=== PATIENT | female | born 1970 | race Caucasian/White ===

== ENCOUNTER 2021-12-28 03:59 | Emergency (ER) | payer OTHER, SELFPAY ==
[2021-12-28 04:01] VITALS: BP 137/61; PULSE 93; RESP 16; TEMP 36.4; O2SAT 99; BMI 44.7
--- NOTE | 2021-12-28 04:17 | EKG12_ITS ---
Test Reason : ABD Blood Pressure : / mmHG Vent. Rate : 092 BPM Atrial Rate : 092 BPM P-R Int : 142 ms QRS Dur : 096 ms QT Int : 370 ms P-R-T Axes : 068 064 071 degrees QTc Int : 457 ms Normal sinus rhythm Normal ECG Confirmed by CAT SKELTON, ILDA ([id number]), television news video editor KATY ZAPATA ([id number]) on 12/30/2021 11:41:30 AM Referred By: SAVANAH Confirmed By:ILDA SHELTON MD
--- NOTE | 2021-12-28 04:19 | EX.ED.DYSGE1 ---
HPI History of Present Illness Chief Complaint: Abd Pain Informant: patient Narrative Narrative: Patient presents with abdominal pain. This started sometime after she woke up. It was about 9 hours ago at about 7 PM when it started. But then patient states that she has been having episodes of nausea off and on for about 3 weeks. She has some soft bowel movements but that is common because she has irritable bowel syndrome. All of her pain is in the upper abdomen and epigastric area. It does not seem to radiate to the back. She has had pancreatitis before but that was due to gallstones and she had her gallbladder out 5 or 6 years ago. She has no fevers or chills. She has not had vomiting. She has not had blood in the stool. No trauma. No chest pain or trouble breathing. No urinary symptoms. Nothing specifically makes this better or worse. PFSH PFSH Medical History Anxiety Depression GERD (gastroesophageal reflux disease) Hypertension IBS (irritable bowel syndrome) Migraines Pancreatitis Psoriatic arthritis Home Medications aripiprazole 5 mg PO DAILY 12/28/21 [History Last Taken Unknown] bupropion HCl mg PO DAILY 12/28/21 [History Last Taken Unknown] dicyclomine 20 mg PO TID PRN #20 tab 12/28/21 [Rx Last Taken Unknown] ferrous sulfate [iron] 325 mg PO DAILY 12/28/21 [History Last Taken Unknown] nortriptyline 100 mg PO DAILY 12/28/21 [History Last Taken Unknown] omeprazole 40 mg PO BID 12/28/21 [History Last Taken Unknown] ondansetron 4 mg PO Q8H PRN #10 tab 12/28/21 [Rx Last Taken Unknown] Allergy/AdvReac Type Severity Reaction Status Date / Time Penicillins Allergy Severe Hives Verified 12/28/21 04:12 erythromycin base Allergy Vomiting Verified 12/28/21 04:12 Sulfa (Sulfonamide Allergy Swelling Verified 12/28/21 04:12 Antibiotics) tylenol cold and flu Allergy Rash Uncoded 12/28/21 04:13 Surgical History History of cholecystectomy Social History Smoking Status: Never smoker ROS ROS ED Constitutional Constitutional ED: Denies chills or fever(s) ENT ENT ED: Denies rhinorrhea or sore throat Cardiovascular Cardiovascular: Denies chest pain or palpitations Respiratory/Chest Respiratory/Chest: Denies cough, dyspnea or sputum Gastrointestinal Gastrointestinal: Reports abdominal pain, diarrhea and nausea; Denies constipation, melena or vomiting Genitourinary Genitourinary ED: Denies dysuria or hematuria Musculoskeletal Musculoskeletal: Denies arthralgias, back pain or myalgias Integumentary Denies rash Neurologic Neurologic: Denies headache(s) Psychiatric Psychiatric: Reports anxiety and depression Endocrine Endocrinology: Denies polydipsia or polyuria Allergic/Immunologic Allergic/Immunologic ED: Denies mouth swelling or urticaria EXAM Physical Exam Const Vital Signs: 12/28/21 04:01 12/28/21 05:26 Temperature 97.5 F L Temperature Source Oral Pulse Rate 93 78 Respiratory Rate 16 16 Blood Pressure 137/61 H 110/47 L Blood Pressure Mean 86 68 Pulse Ox 99 97 Oxygen Delivery Method Room Air Room Air Positive well nourished, well developed and obese General Appearance ED: well developed and NAD; Negative for cyanotic or diaphoretic Nutritional Appearance: obese HEENT Reports moist mucous membranes Eyes General Eye ED: Negative for pale conjunctiva or scleral icterus Neck no JVD Chest Wall inspection of chest normal Resp normal respiratory effort and clear to auscultation bilaterally Effort and Inspection: Negative for pain with movement Auscultation: Negative for rales, rhonchi or wheezes Cardio regular rate and regular rhythm GI normal to inspection, nondistended, normoactive bowel sounds, non-tender and non-distended GI Narrative: Patient points to the epigastric and left upper quadrant where her stomach is sore. But is really not tender to exam. There is no rebound or guarding. No masses. I feel no hernia. No lower or right upper quadrant tenderness either. Auscultation: normoactive bowel sounds Palpation: soft Back/Spine no CVA tenderness Extremity normal to inspection Neuro Sensorium / Orientation: alert; Negative for lethargic or stuporous Psych mental status grossly normal Skin no rashes or lesions noted and no wounds MDM MDM MDM Narrative Medical decision making narrative: Patient had a very slight rise of her white count at 11.3. Electrolytes showed no marked abnormalities. Minimal elevation in creatinine and glucose. Liver function test normal. Lipase normal. Urine showed 5-10 white cells but no nitrites. It was clear. She has no urinary symptoms. Her pain is mostly in the upper abdomen. Because she was having continued pain, we did do a CAT scan. This is not showing any acute issue. There is mild hepatic steatosis. There is some diverticulosis without diverticulitis. I think the patient safe to go home. We discussed reasons to return. I will write her meds for cramping and nausea. Lab Data Attestation: I reviewed the patient's lab results. Labs: Laboratory Results - last 24 hr 12/28/21 12/28/21 12/28/21 04:03 04:03 04:35 WBC 11.3 H RBC 4.83 Hgb 14.1 Hct 42.8 MCV 88.6 MCH 29.2 MCHC 32.9 RDW Std Deviation 43.8 RDW Coeff of Lauren 13.3 Plt Count 341 MPV 9.6 Immature Gran % (Auto) 1.000 H Neut % (Auto) 60.0 Lymph % (Auto) 28.4 [place] % (Auto) 4.9 Eos % (Auto) 5.0 Baso % (Auto) 0.7 Absolute Neuts (auto) 6.8 Absolute Lymphs (auto) 3.21 Nucleated RBC % 0 Sodium 135 L Potassium 3.6 Chloride 98 Carbon Dioxide 26.0 Anion Gap 11 BUN 20 H Creatinine 1.12 H Estim Creat Clear Calc 46.47 Est GFR (MDRD) Af Amer 66 Est GFR (MDRD) Non-Af 54 L BUN/Creatinine Ratio 17.9 Glucose 147 H Calcium 9.5 Total Bilirubin 0.30 AST 19 ALT 39 Alkaline Phosphatase 105 Total Protein 8.0 Albumin 4.1 Globulin 3.9 Albumin/Globulin Ratio 1.1 Lipase 192 Urine Color Yellow Urine Clarity Clear Urine pH 5.0 Ur Specific [place] 1.020 Urine Protein Negative Urine Glucose (UA) Normal Urine Ketones Negative Urine Occult Blood Negative Urine Nitrite Negative Urine Bilirubin Negative Urine Urobilinogen Normal Ur Leukocyte Esterase 100 H Urine RBC 0 SEEN Urine WBC 5-10 SEEN Ur Squamous Epith Cells 0-5 SEEN Ur Transition Epith Cell 0-5 SEEN Urine Bacteria 1+ Urine Mucus 0 SEEN Radiography Diagnostic Testing: Clinical Impression(s) from Imaging Studies Abdomen/Pelvis CT 12/28/21 05:03 IMPRESSION: No acute findings. Sigmoid colon diverticulosis, no diverticulitis. Hepatic steatosis and mild hepatomegaly. 3.3 cm pedunculated uterine fibroid. Electronically Signed: Peter Agudelo MD at 6:24 EST , EKG Initial EKG: Comments: EKG done for epigastric pain and read by me shows normal sinus rhythm with a rate of 92. No ectopy. No acute ST elevation or depression. NH interval, QRS duration and QTc are normal. Discharge Plan Triage Chief Complaint: Abd Pain ED Provider: Seb Castillo Dx/Rx/DC Orders Clinical Impression: Abdominal pain, History of IBS Instructions: ED Abdominal Pain Unkn Cause Fem, ED Irritable Bowel Syndrome Prescriptions: New ondansetron 4 mg tablet,disintegrating 4 mg PO Q8H PRN (Reason: nausea and vomiting) Qty: 10 RF: 0 dicyclomine 20 mg tablet 20 mg PO TID PRN (Reason: cramping) Qty: 20 RF: 0 No Action omeprazole 40 mg Capsule,Delayed Release(Dr/Ec) 40 mg PO BID RF: 0 nortriptyline 25 mg Capsule 100 mg PO DAILY RF: 0 bupropion HCl 100 mg Tablet PO DAILY RF: 0 ferrous sulfate [iron] 325 mg (65 mg iron) Tablet 325 mg PO DAILY RF: 0 aripiprazole 5 mg Tablet 5 mg PO DAILY RF: 0 Referrals: HANS WARE [Other] - 3-5 Days if not improving Disposition Disposition: Home, Self Care
[2021-12-28] MEDS: Ondansetron 4 MG/2 ML Vial IV (04:31)
[2021-12-28] MEDS: 0.9% Normal Saline 1,000 ML 1000 ML IV (04:31)
[2021-12-28] MEDS: Dicyclomine 20 MG/2 ML Vial IM (04:31)
[2021-12-28 04:42] LABS: Absolute Lymphocyte Count 3.21 X10^3/uL (0.83-4.51); Absolute Neutrophil Count 6.8 X10^3/uL (2.0-7.7); Basophil# 0.08 X10^3/uL; Basophil% 0.7 % (0-1); Eosinophil# 0.56 X10^3/uL; Hematocrit 42.8 % (37-47); Hemoglobin 14.1 g/dL (12.0-15.0); Lymphocyte # 3.21 X10^3/ul (0.83-4.51); Lymphocyte % 28.4 % (19-41); Mean Corp Hgb Conc 32.9 g/dL (32-36); Mean Corpuscular Hgb 29.2 pg (27.0-32.0); Mean Corpuscular Volume 88.6 fL (81-99); Mean Platelet Vol. 9.6 fl (6.2-12.0); Monocyte# 0.55 X10^3/uL; Monocyte% 4.9 % (0-10); NRBC Flagged by Analyzer 0 % (0-5); Neutrophil # 6.78 X10^3/uL (2.7-7.7); Platelet Count 341 K/mm3 (150-450); RBC Distribution Width CV 13.3 % (11.6-14.6); RBC Distribution Width SD 43.8 fl (35.1-43.9); Red Blood Count 4.83 M/mm3 (4.2-5.4); White Blood Count 11.3 K/mm3 (4.4-11.0)
[2021-12-28 04:44] LABS: Mucous, Urine 0 SEEN /hpf (<or=2+); Red Blood Cells-Urine 0 SEEN /hpf (0-5)
[2021-12-28 04:45] LABS: Color, Urine Yellow (Yellow); Glucose, Dipstick Normal (Normal); Ketone-Dipstick Negative (Negative); Leukocyte Esterase-Dipstick 100 /ul (Negative); Nitrite-Dipstick Negative (Negative); Occult Blood-Urine Negative /ul (Negative); Protein-Dipstick Negative (Negative); Urine Bilirubin Dipstick Negative (Negative); Urine Clarity Clear (Clear); Urine Urobilinogen Normal (Normal)
[2021-12-28 04:55] LABS: ALB/GLOB Ratio 1.1 RATIO (0.9-2.4); AST(SGOT) 19 U/L (15-37); Alanine Aminotransfer ALT/SGPT 39 U/L (13-56); Albumin, Serum 4.1 g/dL (3.2-5.0); Alkaline Phosphatase 105 U/L (45-117); Anion Gap 11 (5-15); BUN 20 mg/dL (7-18); BUN/Creat Ratio 17.9 RATIO (10-20); Calcium,Total 9.5 mg/dL (8.5-10.1); Chloride 98 mmol/L (98-107); Creatinine, Serum 1.12 mg/dL (0.55-1.02); EST Glomerular Filtration Rate 54 mL/min (>60); Est Glom Filt Rate - Afr Amer 66 mL/min (>60); Estimated Creatinine Clearance 46.47 ml/min; Globulin 3.9 g/dL (2.2-4.2); Glucose 147 mg/dL (74-106); Lipase 192 U/L (73-393); Potassium 3.6 mmol/L (3.5-5.1); Sodium Level 135 mmol/L (136-145)
--- NOTE | 2021-12-28 05:03 | CT_ITS ---
STUDY: CT ABDOMEN AND PELVIS WITH CONTRAST REASON FOR EXAM: Female, 51 years old. Epigastric pain and nausea. Elevated white blood cell count. TECHNIQUE: IV Contrast: IV 100mL Isovue-300 Enteric contrast: None administered. Axial images obtained. Coronal and sagittal reformatted images provided. Individualized dose optimization techniques were used for this CT. COMPARISON: None. FINDINGS: Partially visualized lower chest: Lung bases unremarkable. Liver: Diffuse steatosis and mild hepatomegaly. No focal lesions are evident. Gallbladder and biliary tree: Status post cholecystectomy No biliary ductal dilation. Pancreas: No pancreatic lesions or inflammation. Spleen: Normal size, no splenic lesions. Adrenal glands: No concerning masses. Kidneys and ureters: No hydronephrosis or renal stones. No concerning masses. No ureteral dilation. Bowel: Normal appendix. No obstruction or inflammation of the bowel. Sigmoid colon diverticulosis, no diverticulitis. Urinary bladder: No stones or wall thickening. Reproductive: 3.3 cm fibroid, pedunculated, extending cephalad and posteriorly off the right uterine fundus. Ovaries unremarkable. Vascular: No abdominal aortic aneurysm. Retroperitoneal and peritoneal spaces: No ascites or free air. No retroperitoneal lesions. Osseous: No acute osseous abnormality. Abdominal and pelvic wall: No concerning findings. Any findings described in the findings sections and not included in the impression are incidental and do not require imaging follow-up. CT/Abdomen/Pelvis W IV Cont ONLY IMPRESSION: No acute findings. Sigmoid colon diverticulosis, no diverticulitis. Hepatic steatosis and mild hepatomegaly. 3.3 cm pedunculated uterine fibroid. Electronically Signed: Peter Agudelo MD at 6:24 EST Reading Location ID and State: [facility] [place] Tel , Service support ,
[2021-12-28 05:04] LABS: Bacteria 1+ /hpf (None Seen); Squamous Epithelial Cells - UA 0-5 SEEN /hpf (5-10); Transitional Epithelial - Ur 0-5 SEEN /hpf (0-5); White Blood Cells 5-10 SEEN /hpf (0-5)
[2021-12-28 05:26] VITALS: BP 110/47; PULSE 78; RESP 16; O2SAT 97
[2021-12-28] MEDS: Morphine 4 MG/ML Syringe IV (05:51)
[2021-12-28 06:51] VITALS: BP 120/74; PULSE 87; RESP 16; O2SAT 97
== END 2021-12-28 06:53 | disposition home or self-care (01) ==
PROVIDERS: Emergency Provider Emergency Medicine; Visit Provider Emergency Medicine
DX: R10.9 Unspecified abdominal pain (principal); L40.50 Arthropathic psoriasis, unspecified; K57.90 Diverticulosis of intestine, part unspecified, without perforation or abscess without bleeding; K58.9 Irritable bowel syndrome, unspecified; K76.0 Fatty (change of) liver, not elsewhere classified; I10 Essential (primary) hypertension; K21.9 Gastro-esophageal reflux disease without esophagitis; F32.A Depression, unspecified; F41.9 Anxiety disorder, unspecified; Z79.899 Other long term (current) drug therapy
CPT/HCPCS: 74177; 80053; 81001; 83690; 85025; 93005; 96361; 96372; 96374; 96375; 99283; J7030; Q9967; J2405

== ENCOUNTER 2022-04-09 02:15 | Emergency (ER) | payer OTHER, SELFPAY ==
[2022-04-09 02:16] VITALS: PULSE 88; RESP 18; TEMP 36; O2SAT 99; BMI 43.4
--- NOTE | 2022-04-09 02:21 | CT_ITS ---
STUDY: CT ABDOMEN AND PELVIS WITHOUT CONTRAST REASON FOR EXAM: Female, 51 years old. left flank pain RADIATION DOSAGE (If Supplied By Facility): CTDIvol = ( 20.56 ) mGy, DLP = ( 1037.55 ) mGycm TECHNIQUE: Transaxial images were obtained from the dome of the diaphragm to the symphysis pubis without oral contrast, and without intravenous contrast. Sagittal and coronal images were reconstructed. Individualized dose optimization techniques were used for this CT. COMPARISON: None. FINDINGS: The visualized lung bases are unremarkable. The visualized portions of the heart are within normal limits. Normal liver. There are surgical clips in the gallbladder fossa consistent with a prior cholecystectomy. Normal spleen. Normal pancreas. Normal bilateral adrenal glands. Normal right kidney. Normal left kidney. Normal visualized stomach. Normal small intestine. There are multiple colonic diverticula consistent with diverticulosis. The appendix is visualized and appears normal. Normal abdominal aorta. Normal inferior vena cava. Normal retroperitoneum. Normal urinary bladder. Normal abdominal wall. Normal osseous structures. CT/Abdomen/Pelvis without Cont IMPRESSION: Sigmoid diverticulosis. Electronically Signed: Liv Zamora MD at 3:08 EDT ,
--- NOTE | 2022-04-09 02:22 | EDS_ITS ---
HPI History of Present Illness Chief Complaint: Flank Pain Detail of Chief Complaint: Left flank pain x2 weeks Informant: patient Onset/Context/Timing Current Severity: 06/24 Narrative Narrative: Patient presents to the emergency department complaint left flank pain that started initially about 2 weeks ago and she is had the pain off and on. Over the last 24 hours the pains been continuous. Pain is worse with certain twisting motions. She states the pain does wrap around to the upper abdomen and side. She not had pain like this before. She denies any injury to her back. She denies urinary symptoms. She denies fever. She denies vomiting. Prior similar symptoms: No PFSH PFSH Medical History Anxiety Depression GERD (gastroesophageal reflux disease) Hypertension IBS (irritable bowel syndrome) Migraines Pancreatitis Psoriatic arthritis Home Medications aripiprazole 5 mg PO DAILY 12/28/21 [History Last Taken Unknown] bupropion HCl 100 mg PO DAILY 12/28/21 [History Last Taken Unknown] ferrous sulfate [iron] 325 mg PO DAILY 12/28/21 [History Last Taken Unknown] nortriptyline 100 mg PO DAILY 12/28/21 [History Last Taken Unknown] omeprazole 40 mg PO BID 12/28/21 [History Last Taken Unknown] ciprofloxacin HCl 500 mg PO BID #14 tablet 04/09/22 [Rx Last Taken Unknown] hydrocodone-acetaminophen 1 tab PO Q4H PRN PRN 2 Days #10 tablet 04/09/22 [Rx Last Taken Unknown] lisinopril 20 mg PO BID 04/09/22 [History Last Taken Unknown] venlafaxine mg PO DAILY 04/09/22 [History Last Taken Unknown] Allergy/AdvReac Type Severity Reaction Status Date / Time Penicillins Allergy Severe Hives Verified 04/09/22 02:20 erythromycin base Allergy Vomiting Verified 04/09/22 02:20 Sulfa (Sulfonamide Allergy Swelling Verified 04/09/22 02:20 Antibiotics) tylenol cold and flu Allergy Rash Uncoded 04/09/22 02:20 Surgical History History of cholecystectomy Social History Smoking Status: Never smoker ROS ROS ED Constitutional Constitutional ED: Reports systems reviewed and no addt'l complaints, except as documented; Denies body ache(s), change in weight or chills Eyes Eyes: Denies acute decrease in peripheral vision, change in vision, double vision or loss of vision ENT ENT ED: Reports none; Denies ear pain, lip swelling, loss taste/smell, neck pain, otalgia or sore throat Cardiovascular Cardiovascular: Reports none; Denies abdominal pain, chest pain with activity, leg edema, lightheadedness, palpitations, rapid heart rate or syncope Respiratory/Chest Respiratory/Chest: Reports none; Denies change in mental status, dry cough, dyspnea, hemoptysis, shortness of breath at rest or shortness of breath with exertion Gastrointestinal Gastrointestinal: Reports none; Denies abdominal pain, change in stool character, diarrhea, hematemesis, hematochezia, melena, rectal bleeding or vomiting Genitourinary Genitourinary ED: Reports none; Denies abdominal discomfort, anuria, dysuria, genital pain or polyuria Musculoskeletal Musculoskeletal: Reports none and back pain; Denies arthralgias, difficulty walking, extremity pain, muscle weakness or myalgias Integumentary Reports none; Denies abscess or rash Neurologic Neurologic: Reports none; Denies abnormal gait, confusion, focal weakness, frequent falls, headache(s), loss of vision, numbness, paresthesias, radicular pain, vertigo or weakness Psychiatric Psychiatric: Reports systems reviewed and no addt'l complaints, except as documented and none; Denies behavioral changes, confusion, difficulty concentrating, hallucinations, suicidal ideation, tactile hallucinations or visual hallucinations Endocrine Endocrinology: Denies none, cold intolerance, excessive sweating, fatigue or heat intolerance Hematologic/Lymphatic Hematologic/Lymphatic: Reports none; Denies anemia, easy bleeding or easy bruising Allergic/Immunologic Allergic/Immunologic ED: Denies as per HPI, none, lip swelling, mouth swelling, throat swelling, tongue swelling or hives EXAM Physical Exam Const Vital Signs: 04/09/22 02:16 04/09/22 02:25 Temperature 96.8 F L Temperature Source Temporal Pulse Rate 88 Respiratory Rate 18 Blood Pressure 200/91 H Blood Pressure Mean 127 Pulse Ox 99 Oxygen Delivery Method Room Air Positive well nourished and well developed General Appearance ED: well developed and NAD HEENT Reports TM's clear and moist mucous membranes normocephalic and atraumatic; Negative for trauma or tenderness Tympanic Membrane ED: Yes TM's clear Eyes PERRL and EOMs intact bilaterally General Eye ED: Negative for pale conjunctiva or scleral icterus Neck no lymphadenopathy, supple and no JVD General: Negative for tenderness Chest Wall inspection of chest normal and palpation of chest normal Chest: Negative for tenderness Resp normal respiratory effort and clear to auscultation bilaterally Effort and Inspection: Negative for respiratory distress or pain with movement Auscultation: Negative for rhonchi, wheezes or diminished lung sounds Cardio regular rate, regular rhythm, S1 normal heart sound, S2 normal heart sound and no murmurs Peripheral Pulses: pulses 2+ throughout GI normal to inspection, nondistended, normoactive bowel sounds, soft to palpation, non-tender, non-distended and no masses Back/Spine no thoracic nor lumbar tenderness Back/Spine Narrative: Patient with some mild CVA tenderness on the left. Patient also with tenderness palpation over the lumbar paraspinal musculature. Negative straight leg raises. Deep tendon reflexes plus 2 out of 4 bilaterally at the patella and Achilles. Patient has normal L5 extension. Extremity normal to inspection General Extremety ED: Negative for edema General Extremity: Negative for edema Neuro oriented x3, CN's II-XII intact bilaterally, no sensory deficits noted and gait normal Sensorium / Orientation: awake, alert, oriented to person, oriented to place and oriented to time Motor Exam: strength 5/5 throughout and strength abnormal Psych mental status grossly normal Skin no rashes or lesions noted and no wounds MDM MDM MDM Narrative Medical decision making narrative: IV line established on arrival. Patient was medicated Toradol 15 mg IV. Blood work shows a slightly elevated white count of 12.2. Chemistries were unremarkable. Urinalysis was positive for 500 excite esterase and 50-100 WBCs but no bacteria seen. Urine culture was sent. Patient was started on ciprofloxacin given that she has multiple other drug allergies. Patient will be sent home with a prescription for Cipro as well as few [place] for pain. Patient advised to follow-up with primary care physician in 3 to 5 days. I suspect some of her back pain may be musculoskeletal as well. Lab Data Attestation: I reviewed the patient's lab results. Labs: Laboratory Results - last 24 hr 04/09/22 04/09/22 04/09/22 02:31 02:31 02:31 WBC 12.2 H RBC 5.13 Hgb 14.7 Hct 45.4 MCV 88.5 MCH 28.7 MCHC 32.4 RDW Std Deviation 40.0 RDW Coeff of Lauren 12.3 Plt Count 350 MPV 9.2 Immature Gran % (Auto) 1.000 H Neut % (Auto) 61.3 Lymph % (Auto) 30.0 [place] % (Auto) 4.8 Eos % (Auto) 2.1 Baso % (Auto) 0.8 Absolute Neuts (auto) 7.5 Absolute Lymphs (auto) 3.65 Nucleated RBC % 0 Sodium 139 Potassium 3.6 Chloride 101 Carbon Dioxide 29.0 Anion Gap 9 BUN 14 Creatinine 1.04 H Estim Creat Clear Calc 50.05 Est GFR (MDRD) Af Amer 72 Est GFR (MDRD) Non-Af 59 L BUN/Creatinine Ratio 13.5 Glucose 109 H Calcium 10.0 Urine Color Yellow Urine Clarity Clear Urine pH 6.0 Ur Specific [place] 1.020 Urine Protein Negative Urine Glucose (UA) Normal Urine Ketones 5 H Urine Occult Blood Negative Urine Nitrite Negative Urine Bilirubin Negative Urine Urobilinogen Normal Ur Leukocyte Esterase 500 H Urine RBC 0 SEEN Urine WBC 50-100 SEEN Ur Squamous Epith Cells 5-10 SEEN Urine Bacteria 0 SEEN Urine Mucus 0 SEEN Radiography Diagnostic Testing: Clinical Impression(s) from Imaging Studies Abdomen/Pelvis CT 04/09/22 02:21 IMPRESSION: Sigmoid diverticulosis. Electronically Signed: Liv Zamora MD at 3:08 EDT Reading Location ID and State: [address] [place] [address] Tel , Service support , Discharge Plan Triage Chief Complaint: Flank Pain ED Provider: Olga Lidia Beavers Dx/Rx/DC Orders Clinical Impression: UTI (urinary tract infection), Back pain Instructions: ED Back Pain (Acute or Chronic), ED CYSTITIS Female Adult Prescriptions: New hydrocodone-acetaminophen [hydrocodone-acetaminophen] 1 TABLET tablet 1 tab PO Q4H PRN PRN (Reason: Pain) 2 Days Qty: 10 RF: 0 ciprofloxacin HCl [ciprofloxacin HCl] 500 MG tablet 500 mg PO BID Qty: 14 RF: 0 No Action omeprazole 40 mg Capsule,Delayed Release(Dr/Ec) 40 mg PO BID RF: 0 nortriptyline 25 mg Capsule 100 mg PO DAILY RF: 0 bupropion HCl 100 mg Tablet 100 mg PO DAILY RF: 0 ferrous sulfate [iron] 325 mg (65 mg iron) Tablet 325 mg PO DAILY RF: 0 aripiprazole 5 mg Tablet 5 mg PO DAILY RF: 0 venlafaxine 25 mg Tablet PO DAILY RF: 0 lisinopril 20 mg Tablet 20 mg PO BID RF: 0 Referrals: HANS WARE [Other] Activity Restrictions/Additional Instructions: See your primary care physician 3 to 5 days. Disposition Disposition: Home, Self Care
[2022-04-09 02:25] VITALS: BP 200/91
[2022-04-09] MEDS: Ketorolac 15 MG/ML Vial IV (02:35)
[2022-04-09 02:42] LABS: Bacteria 0 SEEN /hpf (None Seen); Mucous, Urine 0 SEEN /hpf (<or=2+); Red Blood Cells-Urine 0 SEEN /hpf (0-5)
[2022-04-09] MEDS: 0.9% Normal Saline 1,000 ML 150 ML IV (02:51)
[2022-04-09 02:52] LABS: Absolute Lymphocyte Count 3.65 X10^3/uL (0.83-4.51); Absolute Neutrophil Count 7.5 X10^3/uL (2.0-7.7); Basophil% 0.8 % (0-1); Eosinophil# 0.25 X10^3/uL; Eosinophils% 2.1 % (0-5); Hematocrit 45.4 % (37-47); Hemoglobin 14.7 g/dL (12.0-15.0); Lymphocyte # 3.65 X10^3/ul (0.83-4.51); Mean Corp Hgb Conc 32.4 g/dL (32-36); Mean Corpuscular Hgb 28.7 pg (27.0-32.0); Mean Corpuscular Volume 88.5 fL (81-99); Mean Platelet Vol. 9.2 fl (6.2-12.0); Monocyte# 0.58 X10^3/uL; Monocyte% 4.8 % (0-10); NRBC Flagged by Analyzer 0 % (0-5); Neutrophil # 7.46 X10^3/uL (2.7-7.7); Neutrophil % 61.3 % (47-70); Platelet Count 350 K/mm3 (150-450); RBC Distribution Width CV 12.3 % (11.6-14.6); Red Blood Count 5.13 M/mm3 (4.2-5.4); White Blood Count 12.2 K/mm3 (4.4-11.0)
[2022-04-09 03:00] LABS: Color, Urine Yellow (Yellow); Glucose, Dipstick Normal (Normal); Ketone-Dipstick 5 mg/dl (Negative); Leukocyte Esterase-Dipstick 500 /ul (Negative); Nitrite-Dipstick Negative (Negative); Occult Blood-Urine Negative /ul (Negative); Protein-Dipstick Negative (Negative); Urine Bilirubin Dipstick Negative (Negative); Urine Clarity Clear (Clear); Urine Urobilinogen Normal (Normal)
[2022-04-09 03:05] LABS: Anion Gap 9 (5-15); BUN 14 mg/dL (7-18); BUN/Creat Ratio 13.5 RATIO (10-20); Chloride 101 mmol/L (98-107); Creatinine, Serum 1.04 mg/dL (0.55-1.02); EST Glomerular Filtration Rate 59 mL/min (>60); Est Glom Filt Rate - Afr Amer 72 mL/min (>60); Estimated Creatinine Clearance 50.05 ml/min; Glucose 109 mg/dL (74-106); Potassium 3.6 mmol/L (3.5-5.1); Sodium Level 139 mmol/L (136-145)
[2022-04-09 03:24] LABS: Squamous Epithelial Cells - UA 5-10 SEEN /hpf (5-10); White Blood Cells 50-100 SEEN /hpf (0-5)
[2022-04-09] MEDS: Ciprofloxacin 500 MG Tablet PO (03:34)
[2022-04-09 03:39] VITALS: BP 157/88; PULSE 84; RESP 18; O2SAT 97
== END 2022-04-09 04:13 | disposition home or self-care (01) ==
PROVIDERS: Emergency Provider Emergency Medicine; Visit Provider Emergency Medicine
DX: N39.0 Urinary tract infection, site not specified (principal); L40.50 Arthropathic psoriasis, unspecified; M54.9 Dorsalgia, unspecified; I10 Essential (primary) hypertension; K58.9 Irritable bowel syndrome, unspecified; K21.9 Gastro-esophageal reflux disease without esophagitis; F32.A Depression, unspecified; F41.9 Anxiety disorder, unspecified; Z79.899 Other long term (current) drug therapy
CPT/HCPCS: 74176; 80048; 81001; 85025; 87086; 87088; 96361; 96374; 99283; J7030; A4216

== ENCOUNTER 2024-10-05 02:25 | Emergency (ER) | payer OTHER, SELFPAY ==
[2024-10-05 02:26] VITALS: BP 204/95; PULSE 86; RESP 16; TEMP 36.9; O2SAT 97; BMI 46.0
[2024-10-05 02:31] VITALS: BP 204/95; PULSE 81; RESP 18; TEMP 36.9; O2SAT 97
--- NOTE | 2024-10-05 03:06 | CT_ITS ---
EXAM: CT CERVICAL SPINE WITHOUT INTRAVENOUS CONTRAST CLINICAL INDICATION: injury TECHNIQUE: Helically acquired images were obtained of the cervical spine without intravenous contrast. 2D reformatted images were reviewed. This CT exam was performed using one or more of the following dose reduction techniques: automated exposure control, adjustment of the mA and/or kV according to patient size, and/or use of iterative reconstruction technique. RADIATION DOSE: Total DLP: 488.02 mGy-cm. COMPARISON: No relevant prior studies available. FINDINGS: VERTEBRAE: Straightening of the normal cervical lordosis is present. There is slight degenerative anterior subluxation of C4 on C5, and there is slight degenerative posterior subluxation of C6 on C7. No compression fracture, posterior element fracture or facet dislocation. The odontoid is intact. Mild cervical facet arthritis is present. Widespread osteoblastic metastatic disease is present with blastic lesions noted within the cervical spine, upper thoracic spine, skull base, medial clavicles, upper sternum and upper ribs. Normal craniocervical junction and cervicothoracic junction. DISCS/SPINAL CANAL/NEURAL FORAMINA: C5/6 and C6/7 disc spaces show degenerative narrowing with marginal osteophytes, more severe at C5/6. Degenerative spurring noted about the upper cervical disc spaces which are relatively preserved. Broad-based annular bulges and posterior osteophytes mildly flatten the ventral aspect of the thecal sac at the degenerated C5/6 and C6/7 levels. Multilevel neural foraminal encroachment is present in due to uncinate hypertrophy, more severe on the left. No critical thecal sac stenosis. SOFT TISSUES: Unremarkable. No prevertebral soft tissue swelling. LUNG APICES: The visualized upper lungs are intact. Visualized upper ribs show no acute fracture. CT/Spine Cervical without Contras IMPRESSION: 1. Widespread osteoblastic metastatic disease. 2. Straightening of cervical lordosis due to positioning or muscle spasm. 3. Lower cervical degenerative disc disease. 4. No acute fracture or traumatic subluxation. Electronically Signed: Osiot Schaeffer MD at 5:14 EST ,
--- NOTE | 2024-10-05 03:06 | CT_ITS ---
EXAM: CT THORACIC SPINE WITHOUT INTRAVENOUS CONTRAST CLINICAL INDICATION: injury TECHNIQUE: Helically acquired images were obtained of the thoracic spine without intravenous contrast. 2D reformats were reviewed. This CT exam was performed using one or more of the following dose reduction techniques: automated exposure control, adjustment of the mA and/or kV according to patient size, and/or use of iterative reconstruction technique. RADIATION DOSE: Total DLP: 2175.37 mGy-cm. COMPARISON: Cervical CT of this same date. FINDINGS: VERTEBRAE: Osteoblastic metastatic disease noted throughout the visualized thoracic and upper lumbar spine , including lesions within most of the vertebral bodies and posterior elements. Additional blastic lesions are seen within the ribs, left greater than right. The thoracic vertebrae show mildly accentuated kyphosis. No traumatic spondylolisthesis. No compression fracture, posterior element fracture or facet dislocation identified. DISCS/SPINAL CANAL/NEURAL FORAMINA: There is degenerative narrowing of the mid to lower thoracic disc spaces with marginal osteophytes. SOFT TISSUES: No paraspinal soft tissue swelling. The psoas muscles are symmetric. LUNGS AND PLEURAL SPACES: No pleural effusion. MEDIASTINUM: Visualized aorta is normal in caliber. Small hiatal hernia is noted. OTHER: No adrenal nodules. CT/Spine Thoracic without Contras IMPRESSION: 1. Widespread osteoblastic metastatic disease within the thoracolumbar spine. Midthoracic degenerative disc disease. 2. No acute fracture identified. Electronically Signed: Osito Schaeffer MD at 5:43 EST ,
[2024-10-05 04:26] VITALS: BP 137/76; PULSE 85; RESP 16; O2SAT 94
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
[2024-10-05 06:11] VITALS: BP 135/76; PULSE 82; RESP 18; TEMP 36.7; O2SAT 97
== END 2024-10-05 06:12 | disposition home or self-care (01) ==
PROVIDERS: Emergency Provider Emergency Medicine; Visit Provider Emergency Medicine
DX: S20.224A Contusion of middle back wall of thorax, initial encounter (principal); C79.51 Secondary malignant neoplasm of bone; C50.919 Malignant neoplasm of unspecified site of unspecified female breast; M54.2 Cervicalgia; Y04.2XXA Assault by strike against or bumped into by another person, initial encounter; W19.XXXA Unspecified fall, initial encounter; Y99.0 Civilian activity done for income or pay; I10 Essential (primary) hypertension; Z79.899 Other long term (current) drug therapy
CPT/HCPCS: 72125; 72128; 99282